=== PATIENT | female | born 1965 | race Caucasian/White ===

== ENCOUNTER → 2018-02-02 | Outpatient (CLI) | payer OTHER, BC ==
[~2018-02-02] MED LIST: ATIVAN0.5 MG PO; CLARITIN10 M2 PO; FENTANYL 1100 MCG/HR TRANSDERM; HYDROCODONE-AP1 EAC6 PO; PROZAC 20 MG20 M1 PO
[2018-02-02 14:10] LABS: ABSOLUTE EOSINOPHILS 0.2 thou/uL (0.0-0.7); ABSOLUTE LYMPHOCYTES 1.9 thou/uL (0.8-5.3); ABSOLUTE MONOCYTES 0.4 thou/uL (0.0-1.2); ABSOLUTE NEUTROPHILS 4.2 thou/uL (1.6-8.1); BASOPHILS 0.3 %; EOSINOPHILS 2.5 %; HEMATOCRIT 41.8 % (37.0-47.0); HEMOGLOBIN 13.8 gm/dL (12.0-15.0); LYMPHOCYTES 28.5 %; MCH 29.3 pg (26.0-34.0); MCHC 33.2 g/dL (28.0-37.0); MCV 88.2 fL (80.0-100.0); MONOCYTES 6.4 %; MPV 6.7 fl. (7.2-11.1); NUCLEATED RBCS 0 /100WBC; PLATELET COUNT* 222 thou/uL (150-400); POLYS 62.3 %; RBC 4.73 mil/uL (4.20-5.00); RDW-CV 16.1 % (10.5-14.5); WBC 6.8 thou/uL (4.0-11.0)
[2018-02-02 14:15] LABS: URINE BILIRUBIN NEGATIVE (Negative); URINE BLOOD TRACE (Negative); URINE CLARITY CLEAR; URINE COLOR YELLOW; URINE GLUCOSE-RANDOM NEGATIVE (Negative); URINE KETONES NEGATIVE (Negative); URINE LEUKOCYTES NEGATIVE (Negative); URINE NITRITE NEGATIVE (Negative); URINE PROTEIN 1+ (Negative); URINE SPECIFIC GRAVITY >= 1.030 (1.005-1.030); URINE UROBILINOGEN 0.2 E.U./dl (0.2-1.0)
[2018-02-02 14:16] LABS: CALCIUM 8.8 mg/dL (8.5-10.1); CREATININE 0.6 mg/dL (0.6-1.3); POTASSIUM 3.9 mmol/L (3.5-5.1)
[2018-02-02 14:27] LABS: ALBUMIN 3.1 g/dL (3.4-5.0); TOTAL BILIRUBIN 0.2 mg/dL (<0.1-1.0); TOTAL PROTEIN 7.3 g/dL (6.4-8.2)
== END ==
LOC: M.ULTRA 13:43
PROVIDERS: Family Medicine
DX: R60.9 Edema, unspecified (principal)

== ENCOUNTER → 2018-09-08 | Outpatient (CLI) | payer OTHER, BC | LOC: M.RAD 13:49 | DX: R19.4 Change in bowel habit (principal); R32 Unspecified urinary incontinence ==

== ENCOUNTER → 2019-10-04 | Outpatient (CLI) | payer OTHER | LOC: M.ULTRA 15:00 | DX: M79.604 Pain in right leg (principal); M79.89 Other specified soft tissue disorders ==

== ENCOUNTER 2020-04-05 02:39 | Observation (INO) | payer OTHER ==
[~2020-04-05] VITALS: Ht 152.4 cm; Wt 76.5 kg
[2020-04-05 02:49] VITALS: BP 170/108
[2020-04-05] MEDS ORDERED: BACTRIM DS TAB1 EAC1 PO (02:51)
[2020-04-05 03:47] LABS: ABSOLUTE EOSINOPHILS 0.1 thou/uL (0.0-0.7); ABSOLUTE LYMPHOCYTES 2.5 thou/uL (0.8-5.3); ABSOLUTE MONOCYTES 0.7 thou/uL (0.0-1.2); BASOPHILS 0.3 %; EOSINOPHILS 1.2 %; HEMATOCRIT 41.1 % (37.0-47.0); HEMOGLOBIN 14.2 gm/dL (12.0-15.0); LYMPHOCYTES 30.1 %; MCH 29.7 pg (26.0-34.0); MCHC 34.6 g/dL (28.0-37.0); MONOCYTES 8.3 %; MPV 6.5 fl. (7.2-11.1); NUCLEATED RBCS 0 /100WBC; PLATELET COUNT* 304 thou/uL (150-400); POLYS 60.1 %; RBC 4.78 mil/uL (4.20-5.00); RDW-CV 14.6 % (10.5-14.5); WBC 8.3 thou/uL (4.0-11.0)
[2020-04-05 04:00] LABS: CALCIUM 8.7 mg/dL (8.5-10.1); CREATININE 1.4 mg/dL (0.6-1.3)
[2020-04-05 04:02] LABS: ALBUMIN 3.6 g/dL (3.4-5.0); TOTAL BILIRUBIN 0.4 mg/dL (<0.1-1.0); TOTAL PROTEIN 8.4 g/dL (6.4-8.2)
[2020-04-05 05:25] VITALS: BP 144/80
[2020-04-05 05:55] VITALS: BP 138/93
[2020-04-05 08:00] VITALS: BP 133/79
[2020-04-05] MEDS ORDERED: [UNRECOGNIZED DRUG - OTHER] PO (15:49)
[2020-04-05] MEDS ORDERED: PREDNISONE 5 MG5 M1 PO (15:49)
[2020-04-05] MEDS ORDERED: CYCLOBENZAPRINE5 MG PO (15:50)
[2020-04-05 16:00] VITALS: BP 119/73
--- NOTE | 2020-04-05 20:51 | NUR ---
I ASSUMED CARE OF THE PATIENT AT 0700. SHE IS ALERT AND ORIENTED X4 AND IS UP AD ROBBIE. BED IS IN THE LOW LOCKED POSITION AND CALL LIGHT IS IN REACH. HOURLY ROUNDING IS COMPLETED AND PATIENT NEEDS ARE MET. PAIN IS MANAGED WITH PRN MEDS. CAME AND GOT HER KEEPS AND BROUGHT HER SOME ITEMS FROM HOME, INCLUDING A HEAD LICE KIT. SHE ISN'T SURE IF SHE HAS LICE OR IF THE MORPHINE IS JUST MAKING HER ITCH. SHE HAS 2+ BILATERAL EDEMA IN THE LOWER EXTREMITIES. AN MRSA SWAB WAS SENT TO LAB. POTASSIUM WAS REPLACED. SHE WILL HAVE A VENOUS ULTRASOUND TOMORROW. MED LIST WAS RECEIVED FROM [facility] IN [place]. THEY STATED THAT THE PATIENT DID NOT BUSINESS DEVELOPMENT CONSULTANT THEIR MAINTENACE MEDS SINCE LAST MARCH. WILL CONTINE TO MONITOR. PATIENT IS ANXIOUS AND JUMPY.
[2020-04-05 23:45] VITALS: BP 145/86
--- NOTE | 2020-04-06 05:51 | NUR ---
PATIENT SHOWERED AT BEGINNING OF SHIFT. PT WITH ANTIBIOTICS INFUSING IN RT AC PER DR ORDER. PT GIVEN PAIN MED FOR LT LEG CELLULITIS. FREQUENTLY USED ITEMS AND CALL LIGHT WITHINREACH. SIDERAILS UPX3 AND BED ALARM ON. WILL CONTINUE TO MONITOR.
[2020-04-06 11:19] VITALS: BP 123/52
[2020-04-06 12:24] VITALS: BP 123/52
[2020-04-06] MEDS ORDERED: PROBIOTIC1 EAC7 PO (12:28)
[2020-04-06] MEDS ORDERED: CLEOCIN HCL300 MG PO (12:34)
--- NOTE | 2020-04-06 13:46 | NUR ---
PT DISCHARGED TO HOME AT 1345 WITH NURSING STAFF AND . IV OUT. PT STABLE. PAIN CONTROLLED. ABX PAPER SCRIPT GIVEN WITH CARENOTES. PERSONAL ITEMS SENT WITH PT. DOPPLER WAS NEGATIVE FOR DVT.
== END 2020-04-06 13:47 | disposition home or self-care (01) ==
LOC: M.ERS 02:39 → M.TBA-ER 04:57 → M.3W 05:40
PROVIDERS: Emergency Medicine; ADMIT Family Medicine; ATTEND Family Medicine
DX: L03.116 Cellulitis of left lower limb (principal); E87.6 Hypokalemia; F41.9 Anxiety disorder, unspecified; F32.9 Major depressive disorder, single episode, unspecified